=== PATIENT | female | born 1935 | race Caucasian/White ===

== ENCOUNTER 2018-07-15 17:17 | Emergency (ER) | payer MEDICARE | END 2018-07-15 18:08 | disposition home or self-care (01) | LOC: MADERS 17:17 | DX: K52.9 Noninfective gastroenteritis and colitis, unspecified (principal); E03.9 Hypothyroidism, unspecified; Z79.899 Other long term (current) drug therapy | CPT/HCPCS: 99283 ==

== ENCOUNTER 2018-07-17 10:34 | Emergency (ER) | payer MEDICARE ==
[~2018-07-17 10:34] MED LIST: Iopamidol 370 76% 100 ML VIAL ONE
[2018-07-17] MEDS ORDERED: Morphine 4 MG/ML VIAL ONE (11:16)
[2018-07-17] MEDS ORDERED: Promethazine HCl 25 MG/ML VIAL ONE (11:16)
[2018-07-17 11:55] LABS: #Basophils 0.1 thou/uL (0.0-0.2); #Lymphocytes 1.6 thou/uL (1.20-3.40); #Monocytes 1.1 thou/uL (0.11-0.59); #Neutrophils 16.5 thou/uL (1.40-6.50); %Basophils 0.5 % (0.0-1.0); %Lymphocytes 8.4 % (21.0-51.0); %Monocytes 5.4 % (0.0-10.0); %Neutrophils 85.6 % (42.0-75.0); Hemoglobin 15.2 g/dL (12.0-16.0); Mean Corpuscular HGB CONC 31.6 g/dL (32.0-36.0); Mean Corpuscular Hemoglobin 29.8 pg (27.0-31.0); Mean Corpuscular Volume 94.3 fL (78.0-98.0); Mean Platelet Volume 8.6 fL (7.4-10.4); Platelet Count 261 thou/uL (130-400); RBC Distribution Width 12.5 % (11.5-14.5); Red Blood Cell (RBC) Count 5.09 mill/uL (4.20-5.40); White Blood Cell (WBC) Count 19.3 thou/uL (4.8-10.8)
[2018-07-17 12:15] LABS: ALT (SGPT) 13 U/L (8-55); AST (SGOT) 17 U/L (5-34); Albumin 3.9 g/dL (3.4-4.8); Alkaline Phosphatase 138 U/L (40-150); Anion Gap 18 mmol/L (10-20); BUN (Urea Nitrogen) 15 mg/dL (9.8-20.1); Bilirubin, Total 1.8 mg/dL (0.2-1.2); Calc. Creatinine Clearance 0 mL/min (70-130); Calcium 10.7 mg/dL (7.8-10.44); Carbon Dioxide 23 mmol/L (23-31); Chloride 95 mmol/L (98-107); Estimated GFR-MDRD 58; Globulin 3.7 g/dL (2.4-3.5); Glucose 92 mg/dL (83-110); Potassium 4.2 mmol/L (3.5-5.1); Protein, Total 7.6 g/dL (6.0-8.3); Sodium 132 mmol/L (136-145)
[2018-07-17] MEDS ORDERED: Sodium Chloride 0.9% 500 ML ONE (12:40)
[2018-07-17] MEDS ORDERED: metroNIDAZOLE 500 MG/100 ML BAG ONE (13:11)
[2018-07-17] MEDS ORDERED: Cefepime 1 GM VIAL ONE (13:23)
[2018-07-17] MEDS ORDERED: Sodium Chloride 0.9% 100 ML ONE (13:23)
--- NOTE | 2018-07-17 13:40 | CT ---
CT ABDOMEN AND PELVIS WITH IV CONTRAST: Date: 07/17/18 HISTORY: Abdominal pain. FINDINGS: Mild atelectasis and scarring at the lung bases. Gallbladder is overdistended, with thickening of the gallbladder wall and small amount of adjacent fluid. Stranding in the adjacent fat. Mild distention of the intrahepatic biliary system. Common duct slightly dilated at 0.8 cm. It tapers to a normal petra earing ampulla of Vater. Tiny calcification is present within the pancreatic head just anterior to th e central common duct. Small cysts of the renal cortex. Calcification throughout the arterial structures. Mild fusiform ecta abi of the lower abdominal aorta. Minimal free fluid in the dependent portion of the pelvis. Urinary bladder is decompressed. Appendix is noninflamed. IMPRESSION: 1. Acute cholecystitis. 2. Mild distention of the common bile duct and intrahepatic biliary system without cause apparent. I n addition to surgical evaluation for the acute cholecystitis, please consider gastroenterologic eval uation for possible central biliary obstruction. 3. Atherosclerosis. POS: GARCIA
[2018-07-17 14:07] LABS: Bilirubin Negative (Negative); Blood, Urine Negative (Negative); Clarity Clear (Clear); Glucose, Urine (Dipstick) Negative (Negative); Leukocyte Negative (Negative); Nitrite Negative (Negative); Protein, Urine (Dipstick) Negative (Neg-Trace)
== END 2018-07-17 15:51 | disposition short-term general hospital (02) ==
LOC: MADERS 10:34
DX: K81.0 Acute cholecystitis (principal); E03.9 Hypothyroidism, unspecified; Z79.899 Other long term (current) drug therapy
CPT/HCPCS: 36415; 74177; 80053; 81003; 84484; 85025; 87040; 93005; 96365; 96367; 96375; J0692; J2270; J2550; J7050; Q9967

== ENCOUNTER 2019-11-11 07:54 | Emergency (ER) | payer MEDICARE ==
--- NOTE | 2019-11-11 09:01 | RAD ---
Exam: XR Forearm Lt 2 View STANDARD HISTORY: Injury to left forearm after a fall. Left forearm pain.. COMPARISON: None FINDINGS: There is a mildly impacted fracture involving the distal left radial metaphysis which appears to be p redominantly a transverse fracture. There is also a nondisplaced fracture involving the distal left ulna. No additional fracture is seen, and there is no evidence of a dislocation. Subcutaneous soft ti ssue swelling is seen about the level of the mid forearm as well as at the level of the distal forearm. IMPRESSION: 1. Mildly impacted fracture distal left radial metaphysis as well as fracture involving the distal le ft ulna. 2. Subcutaneous soft tissue swelling.
--- NOTE | 2019-11-11 09:06 | RAD ---
Exam: XR Hand Lt 3 View STANDARD HISTORY: Left hand pain after a fall. Injury. COMPARISON: None FINDINGS: There is a mildly impacted transverse fracture involving the distal left radial metaphysis. There is irregularity involving the distal right ulna with is only well seen on the oblique view, and this is also suggestive of a nondisplaced fracture. Degenerative changes are seen involving the first carp al metacarpal joint and greater multangular joint. There appears to be slight widening of the scapholunate distance; although, this could be projectional in origin. Calcifications are seen at the wrist which may related to chondrocalcinosis. No additional fracture is seen, and there is no dislocation. Diffuse osteopenia is present. Subcutaneous soft tissue swelling is seen about the dista l forearm and dorsal aspect of the wrist. IMPRESSION: 1. Nondisplaced but minimally impacted fracture distal left radial metaphysis as well as suggested fr acture involving the distal ulna. 2. Subcutaneous soft tissue swelling. 3. Osteopenia.
== END 2019-11-11 09:25 | disposition home or self-care (01) ==
LOC: MADERS 07:54
DX: S59.202A Unspecified physeal fracture of lower end of radius, left arm, initial encounter for closed fracture (principal); S52.602A Unspecified fracture of lower end of left ulna, initial encounter for closed fracture; E03.9 Hypothyroidism, unspecified; Z79.899 Other long term (current) drug therapy; W19.XXXA Unspecified fall, initial encounter
CPT/HCPCS: 29125